=== PATIENT | female | born 1975 | race Caucasian/White ===

== ENCOUNTER 2019-09-22 12:52 | Outpatient (CLI) | payer MEDICAID | END 2019-09-22 12:53 | disposition short-term general hospital (02) | LOC: EMS 12:52 | PROVIDERS: ATTEND Surgery | DX: S09.90XA Unspecified injury of head, initial encounter (principal); S00.12XA Contusion of left eyelid and periocular area, initial encounter; S00.11XA Contusion of right eyelid and periocular area, initial encounter; S00.33XA Contusion of nose, initial encounter; R40.20 Unspecified coma; Y04.2XXA Assault by strike against or bumped into by another person, initial encounter; R40.2411 Glasgow coma scale score 13-15, in the field [EMT or ambulance]; Y92.9 Unspecified place or not applicable | CPT/HCPCS: A0425; A0429; A0999 ==

== ENCOUNTER 2019-09-22 13:04 | Emergency (ER) | payer MEDICAID ==
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
[2019-09-22 13:16] LABS: BASOPHILS # (AUTO) 0.1 10^3/uL (0.0-0.1); BASOPHILS % (AUTO) 0.8 %; EOSINOPHILS # (AUTO) 0.1 10^3/uL (0.0-0.7); EOSINOPHILS % (AUTO) 1.4 %; HGB - HEMOGLOBIN 13.4 g/dL (12.0-16.0); LYMPHOCYTES # (AUTO) 1.9 10^3/uL (1.5-3.5); LYMPHOCYTES % (AUTO) 19.6 %; MEAN CORPUSCULAR HEMOGLOBIN 33.2 pg (27.0-31.0); MEAN CORPUSCULAR HGB CONC 32.8 g/dL (32.0-36.0); MEAN CORPUSCULAR VOLUME 101.2 fL (81.0-99.0); MEAN PLATELET VOLUME 9.1 fL (7.9-10.8); MONOCYTES # (AUTO) 0.9 10^3/uL (0.0-1.0); MONOCYTES % (AUTO) 9.4 %; NEUTROPHILS # (AUTO) 6.6 10^3/uL (1.5-6.6); NEUTROPHILS % (AUTO) 68.3 %; PLT - PLATELET COUNT 321 10^3/uL (130-450); RED BLOOD COUNT 4.04 10^6/uL (4.20-5.40); RED CELL DISTRIBUTION WIDTH 17.1 % (12.0-15.0); WHITE BLOOD COUNT 9.7 x10^3/uL (4.8-10.8)
[2019-09-22 13:32] LABS: ALBUMIN/GLOBULIN RATIO 1.2 (1.0-2.2); BILIRUBIN,TOTAL 0.4 mg/dL (0.2-1.0); CALCIUM 8.8 mg/dL (8.5-10.3); CREATININE 0.4 mg/dL (0.4-1.0); TOTAL PROTEIN 7.4 g/dL (6.7-8.2)
[2019-09-22 13:43] LABS: HCG,QUALITATIVE BLOOD NEGATIVE
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
[2019-09-22 19:26] VITALS: BP 105/67
== END 2019-09-22 19:50 | disposition home or self-care (01) ==
LOC: ED 13:04
DX: S00.31XA Abrasion of nose, initial encounter (principal); S00.12XA Contusion of left eyelid and periocular area, initial encounter; S00.11XA Contusion of right eyelid and periocular area, initial encounter; S09.90XA Unspecified injury of head, initial encounter; W19.XXXA Unspecified fall, initial encounter; F10.121 Alcohol abuse with intoxication delirium
CPT/HCPCS: 36415; 70450; 70486; 72125; 80053; 80320; 83690; 84703; 85025; 99281; 99284

== ENCOUNTER 2019-09-30 09:53 | Emergency (ER) | payer MEDICAID ==
[2019-09-30 10:52] LABS: MUDS CUTOFF CONCENTRATIONS CUTOFF CONC BELOW:
[2019-09-30 10:54] LABS: BASOPHILS # (AUTO) 0.1 10^3/uL (0.0-0.1); BASOPHILS % (AUTO) 0.9 %; EOSINOPHILS # (AUTO) 0.1 10^3/uL (0.0-0.7); EOSINOPHILS % (AUTO) 2.2 %; LYMPHOCYTES # (AUTO) 1.2 10^3/uL (1.5-3.5); LYMPHOCYTES % (AUTO) 19.1 %; MEAN CORPUSCULAR HEMOGLOBIN 33.8 pg (27.0-31.0); MEAN CORPUSCULAR HGB CONC 33.6 g/dL (32.0-36.0); MEAN CORPUSCULAR VOLUME 100.5 fL (81.0-99.0); MEAN PLATELET VOLUME 9.5 fL (7.9-10.8); MONOCYTES # (AUTO) 0.7 10^3/uL (0.0-1.0); MONOCYTES % (AUTO) 10.5 %; NEUTROPHILS # (AUTO) 4.3 10^3/uL (1.5-6.6); NEUTROPHILS % (AUTO) 66.8 %; PLT - PLATELET COUNT 270 10^3/uL (130-450); RED BLOOD COUNT 3.85 10^6/uL (4.20-5.40); RED CELL DISTRIBUTION WIDTH 16.5 % (12.0-15.0); WHITE BLOOD COUNT 6.4 x10^3/uL (4.8-10.8)
[2019-09-30 10:57] LABS: BILIRUBIN,URINE NEGATIVE (NEGATIVE); GLUCOSE, URINE (UA) NEGATIVE (NEGATIVE); KETONES,URINE (UA) NEGATIVE (NEGATIVE); LEUKOCYTE ESTERASE, URINE NEGATIVE (NEGATIVE); NITRITE,URINE NEGATIVE (NEGATIVE); OCCULT BLOOD,URINE NEGATIVE (NEGATIVE); PROTEIN,URINE NEGATIVE (NEGATIVE); UROBILINOGEN,URINE 0.2 (NORMAL) E.U./dL (NORMAL)
[2019-09-30 10:58] LABS: CLARITY,URINE CLEAR (CLEAR); HCG UR QUAL NEGATIVE
[2019-09-30 11:07] LABS: AMPHETAMINE SCREEN,URINE NEGATIVE (NEGATIVE); BENZODIAZEPINES SCREEN, URINE NEGATIVE (NEGATIVE); COCAINE SCREEN URINE NEGATIVE (NEGATIVE); METHADONE SCREEN, URINE NEGATIVE (NEGATIVE); METHAMPHETAMINES SCREEN, URINE NEGATIVE (NEGATIVE); OPIATE SCREEN, URINE NEGATIVE (NEGATIVE); OXYCODONE SCREEN, URINE NEGATIVE (NEGATIVE); PROPOXYPHENE SCREEN, URINE NEGATIVE (NEGATIVE); TRICYCLIC ANTIDEPRESSANT,URINE NEGATIVE (NEGATIVE)
[2019-09-30 11:10] LABS: ACETAMINOPHEN < 10 ug/mL (10-30); ALBUMIN 4.4 g/dL (3.2-5.5); ALBUMIN/GLOBULIN RATIO 1.2 (1.0-2.2); ALKALINE PHOSPHATASE 51 IU/L (42-121); ALT ALANINE AMINOTRANSFERASE 42 IU/L (10-60); AST ASPARTATE AMINOTRANSFERASE 50 IU/L (10-42); BILIRUBIN,TOTAL 0.6 mg/dL (0.2-1.0); BUN - BLOOD UREA NITROGEN 9 mg/dL (6-20); CALCIUM 9.6 mg/dL (8.5-10.3); CARBON DIOXIDE - CO2 26 mmol/L (21-32); CHLORIDE 103 mmol/L (101-111); CREATININE 0.4 mg/dL (0.4-1.0); GFR - MDRD 175 (>89); GLUCOSE 75 mg/dL (70-100); LIPASE 44 U/L (22-51); SALICYLATE < 6.0 mg/dL; SODIUM 142 mmol/L (135-145)
[2019-09-30] MEDS ORDERED: FOLIC ACID INJ 1 MG, THIAMINE INJ 100 MG, MAGNESIUM SULFATE 2 GM, MULTIVITAMIN 10 ML in... IV STA ×5 (11:15)
[2019-09-30] MEDS ORDERED: DEXAMETHASONE 10 MG/ML VIAL IVP STA (11:15)
[2019-09-30] MEDS ORDERED: LORazepam 2 MG/ML VIAL IVP STA ×3 (11:15→15:45)
[2019-09-30] MEDS ORDERED: ONDANSETRON 4 MG/2 ML VIAL IVP STA (11:16)
--- NOTE | 2019-09-30 11:19 | ED Physician Documentation ---
History of Present Illness - Stated complaint Stated Complaint: ETOH WITHDRAWLS - Chief complaint Chief Complaint: MHE - History obtained from History obtained from: Patient, Family - History of Present Illness Timing: How many weeks ago (6) - Additonal information Additional information: 44-year-old female with a history of alcohol dependence has been drinking for the past 6 weeks straight and she has come to the emergency department today seeking help for alcohol withdrawal and treatment. She has been in treatment once previously back in 2010 when she went to [facility] and at that time she had 2 years of sobriety followed by a week of drinking and another year of sobriety. She states that her drinking pattern currently is about 1/5 of vodka per day as well as beer and she is drinking as early in the morning as she can get out of the skilled nursing and she is sleeping at the haven not able to drink after 7 PM. She begins to go through withdrawal at about 1 AM. She is complaining of sweats nausea vomiting abdominal pain the shakes. She has had DTs previously and she has once had withdrawal seizure. Review of Systems Constitutional: denies: Fever Eyes: denies: Decreased vision Ears: denies: Ear pain Nose: denies: Congestion Throat: denies: Sore throat Cardiac: denies: Chest pain / pressure, Palpitations Respiratory: denies: Dyspnea, Cough GI: reports: Abdominal Pain, Nausea, Vomiting : denies: Dysuria, Frequency Skin: denies: Rash Musculoskeletal: denies: Neck pain Neurologic: denies: Generalized weakness, Focal weakness, Numbness PD PAST MEDICAL HISTORY - Past Surgical History Past Surgical History: No - Present Medications Home Medications: Ambulatory Orders Medication Instructions Recorded Confirmed Lorazepam [Ativan] 1 - 2 mg PO Q4HR PRN #30 tablet 09/30/19 - Allergies Allergies/Adverse Reactions: Allergies Allergy/AdvReac Type Severity Reaction Status Date / Time Unable to Assess Allergy Verified 09/30/19 10:06 - Social History Does the pt smoke?: No Smoking Status: Never smoker Does the pt drink ETOH?: Yes Does the pt have substance abuse?: No - Immunizations Immunizations are current?: Yes - POLST Patient has POLST: No PD ED PE NORMAL - Vitals Vital signs reviewed: Yes (hypertensive mild) - General General: Alert and oriented X 3, No acute distress, Well developed/nourished - HEENT HEENT: Atraumatic, PERRL, EOMI, Ears normal, Moist mucous membranes, Pharynx benign, Dentition benign - Neck Neck: Supple, no meningeal sign, No bony TTP - Cardiac Cardiac: RRR, No murmur - Respiratory Respiratory: No respiratory distress, Clear bilaterally - Abdomen Abdomen: Normal bowel sounds, Soft, Non distended, No organomegaly, Other (minimal epigastric tenderness) - Back Back: No CVA TTP, No spinal TTP - Derm Derm: Normal color, Warm and dry, No rash - Extremities Extremities: No deformity, No edema - Neuro Neuro: Alert and oriented X 3, 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, No motor deficit, No sensory deficit, Normal speech Eye Opening: Spontaneous Motor: Obeys Commands Verbal: Oriented GCS Score: 15 - Psych Psych: Normal mood, Normal affect Results - Vitals Vitals: Vital Signs - 24 hr 09/30/19 09/30/19 09/30/19 10:03 12:03 14:39 Temperature 36.5 C Heart Rate 87 80 82 Respiratory 16 16 15 Rate Blood Pressure 131/75 H 125/72 125/72 O2 Saturation 100 97 96 Oxygen O2 Source Room air - Labs Labs: Laboratory Tests 09/30/19 09/30/19 09/30/19 10:48 10:48 10:48 WBC 6.4 RBC 3.85 L Hgb 13.0 Hct 38.7 MCV 100.5 H MCH 33.8 H MCHC 33.6 RDW 16.5 H Plt Count 270 MPV 9.5 Neut # (Auto) 4.3 Lymph # (Auto) 1.2 L [place] # (Auto) 0.7 Eos # (Auto) 0.1 Baso # (Auto) 0.1 Absolute Nucleated RBC 0.00 Nucleated RBC % 0.0 Sodium 142 Potassium 4.1 Chloride 103 Carbon Dioxide 26 Anion Gap 13.0 BUN 9 Creatinine 0.4 Estimated GFR (MDRD) 175 Glucose 75 Calcium 9.6 Total Bilirubin 0.6 AST 50 H ALT 42 Alkaline Phosphatase 51 Total Protein 8.0 Albumin 4.4 Globulin 3.6 Albumin/Globulin Ratio 1.2 Lipase 44 TSH 2.18 Urine Color Urine Clarity Urine pH Ur Specific [place] Urine Protein Urine Glucose (UA) Urine Ketones Urine Occult Blood Urine Nitrite Urine Bilirubin Urine Urobilinogen Ur Leukocyte Esterase Ur Microscopic Review Urine Culture Comments Urine HCG, Qual Salicylates < 6.0 Urine Opiates Screen Ur Oxycodone Screen Urine Methadone Screen Ur Propoxyphene Screen Acetaminophen < 10 L Ur Barbiturates Screen Ur Tricyclics Screen Ur Phencyclidine Scrn Ur Amphetamine Screen U Methamphetamines Scrn U Benzodiazepines Scrn Urine Cocaine Screen U Cannabinoids Screen Ethyl Alcohol 183.6 09/30/19 09/30/19 10:48 10:48 WBC RBC Hgb Hct MCV MCH MCHC RDW Plt Count MPV Neut # (Auto) Lymph # (Auto) [place] # (Auto) Eos # (Auto) Baso # (Auto) Absolute Nucleated RBC Nucleated RBC % Sodium Potassium Chloride Carbon Dioxide Anion Gap BUN Creatinine Estimated GFR (MDRD) Glucose Calcium Total Bilirubin AST ALT Alkaline Phosphatase Total Protein Albumin Globulin Albumin/Globulin Ratio Lipase TSH Urine Color YELLOW Urine Clarity CLEAR Urine pH 6.0 Ur Specific [place] <=1.005 Urine Protein NEGATIVE Urine Glucose (UA) NEGATIVE Urine Ketones NEGATIVE Urine Occult Blood NEGATIVE Urine Nitrite NEGATIVE Urine Bilirubin NEGATIVE Urine Urobilinogen 0.2 (NORMAL) Ur Leukocyte Esterase NEGATIVE Ur Microscopic Review NOT INDICATED Urine Culture Comments NOT INDICATED Urine HCG, Qual NEGATIVE Salicylates Urine Opiates Screen NEGATIVE Ur Oxycodone Screen NEGATIVE Urine Methadone Screen NEGATIVE Ur Propoxyphene Screen NEGATIVE Acetaminophen Ur Barbiturates Screen NEGATIVE Ur Tricyclics Screen NEGATIVE Ur Phencyclidine Scrn NEGATIVE Ur Amphetamine Screen NEGATIVE U Methamphetamines Scrn NEGATIVE U Benzodiazepines Scrn NEGATIVE Urine Cocaine Screen NEGATIVE U Cannabinoids Screen NEGATIVE Ethyl Alcohol PD MEDICAL DECISION MAKING - ED course Complexity details: reviewed old records, reviewed results, re-evaluated patient, considered differential, d/w patient, d/w family ED course: 42-year-old female with a history of alcohol dependence he is here this morning requesting assistance with detox and treatment. She has been drinking about 1/5/day and has prior experience with withdrawal. This morning her blood alcohol is 185 and she is administered a banana bag IV and 1 mg of Ativan. She eventually makes arrangements with [facility] for detox before [facility] for treatment. She is administered a second 1mg of ativan in the ED but continues to have increasing shakes and she is administered a 3rd mg. Departure - Departure Disposition: 01 Home, Self Care Clinical Impression: Alcohol withdrawal syndrome Qualifiers: Complication of substance-induced condition: with perceptual disturbance Qualified Code(s): F10.232 - Alcohol dependence with withdrawal with perceptual disturbance Condition: Stable Instructions: ED Withdrawal Alcohol Follow-Up: [facility] [Provider Group] Prescriptions: Lorazepam [Ativan] 1 - 2 mg PO Q4HR PRN #30 tablet PRN Reason: withdrawal symptoms
[2019-09-30 18:55] VITALS: BP 132/80
== END 2019-09-30 19:19 | disposition home or self-care (01) ==
LOC: ED 09:53
DX: F10.232 Alcohol dependence with withdrawal with perceptual disturbance (principal); Y90.6 Blood alcohol level of 120-199 mg/100 ml
CPT/HCPCS: 36415; 80053; 80306; 80307; 80320; 80329; 81003; 81025; 83690; 84443; 85025; 96365; 96366; 96375; 96376; 99284; J2060; J3411; 81001; 87086

== ENCOUNTER 2019-10-05 10:00 | Emergency (ER) | payer MEDICAID ==
[2019-10-05] MEDS ORDERED: LORazepam 1 MG TABLET PO STA (11:49)
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
[2019-10-05 11:55] VITALS: BP 113/74
== END 2019-10-05 11:56 | disposition home or self-care (01) ==
LOC: ED 10:00
DX: F10.230 Alcohol dependence with withdrawal, uncomplicated (principal); Z76.0 Encounter for issue of repeat prescription
CPT/HCPCS: 99282; 99283; J8499

== ENCOUNTER 2019-12-10 18:21 | Emergency (ER) | payer MEDICAID ==
[2019-12-10 18:33] VITALS: BP 102/59
--- NOTE | 2019-12-10 19:16 | ED Physician Documentation ---
History of Present Illness - Stated complaint Stated Complaint: COUGH - Chief complaint Chief Complaint: Resp - History obtained from History obtained from: Patient - Additonal information Additional information: Patient comes emergency department complaining of cough productive of green phlegm for about the last week. Patient states she started with a sore throat and quickly developed nasal congestion and sinus pain/congestion. She does not think she has been running fevers. Patient states she is not necessarily short of breath, but that when she breathes in it makes her start coughing. She states that she does not have a history of asthma or COPD. She is not a smoker on a regular basis, but does live with smokers, and states that she will take a puff off of her friends cigarettes occasionally. Patient is otherwise healthy. She states that she has not been able to work out recently because she feels rundown. Patient denies any abdominal pain, nausea, or vomiting. No other complaints at this time.No known sick contacts Review of Systems Ten Systems: 10 systems reviewed and negative Constitutional: reports: Reviewed and negative Eyes: reports: Reviewed and negative Ears: reports: Reviewed and negative Nose: reports: Rhinorrhea / runny nose, Congestion Throat: reports: Sore throat Cardiac: reports: Reviewed and negative Respiratory: reports: Cough GI: reports: Reviewed and negative : reports: Reviewed and negative Skin: reports: Reviewed and negative Musculoskeletal: reports: Reviewed and negative Neurologic: reports: Reviewed and negative Psychiatric: reports: Reviewed and negative Endocrine: reports: Reviewed and negative Immunocompromised: reports: Reviewed and negative PD PAST MEDICAL HISTORY - Past Surgical History Past Surgical History: No - Present Medications Home Medications: Ambulatory Orders Medication Instructions Recorded Confirmed Lorazepam [Ativan] 1 - 2 mg PO Q4HR PRN #30 tablet 09/30/19 Lorazepam [Ativan] 1 mg PO TID PRN #11 tablet 10/05/19 Azithromycin [Zithromax] 0 mg PO DAILY #6 tablet 12/10/19 - Allergies Allergies/Adverse Reactions: Allergies Allergy/AdvReac Type Severity Reaction Status Date / Time No Known Drug Allergies Allergy Verified 12/10/19 18:32 - Social History Does the pt smoke?: No Smoking Status: Never smoker Does the pt drink ETOH?: Yes Does the pt have substance abuse?: No - Immunizations Immunizations are current?: Yes - POLST Patient has POLST: No PD ED PE NORMAL - Vitals Vital signs reviewed: Yes - General General: Alert and oriented X 3, No acute distress - HEENT HEENT: Atraumatic, PERRL, EOMI, Pharynx benign - Neck Neck: Supple, no meningeal sign - Cardiac Cardiac: RRR, No murmur - Respiratory Respiratory: No respiratory distress, Clear bilaterally - Abdomen Abdomen: Soft, Non tender, Non distended - Derm Derm: Normal color, Warm and dry, No rash - Extremities Extremities: No deformity, No tenderness to palpate, No edema, No calf tenderness / cord - Neuro Neuro: Alert and oriented X 3, 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, No motor deficit, No sensory deficit, Normal speech - Psych Psych: Normal mood, Normal affect Results - Vitals Vitals: Vital Signs - 24 hr 12/10/19 18:32 Temperature 37 C Heart Rate 91 Respiratory 17 Rate Blood Pressure 102/59 L O2 Saturation 97 Oxygen O2 Source Room air - Rads (name of study) Chest x-ray Radiology: Final report received, EMP read indepedently (No acute pathology) PD MEDICAL DECISION MAKING - ED course Complexity details: reviewed old records, reviewed results, re-evaluated patient, considered differential, d/w patient ED course: Patient was worked up with chest x-ray, Which was negative. Influenza testing had been discussed with the patient and ordered, but patient ultimately refused the test when nursing staff went to perform it. I discussed with the patient that at this point in time, given her secondhand smoke exposure, occasional smoking herself, and the extended period of cough with productive, green phlegm, she is possibly developing an early bacterial bronchitis. However, I do not feel that she needs antibiotics at this time. I will give her prescription for this which she is to fill only if the symptoms continue for more than the next few days. She is advised to follow-up with her primary care physician for further concerns. We have discussed the usual indications for return. Departure - Departure Disposition: 01 Home, Self Care Clinical Impression: Upper respiratory tract infection Condition: Good Instructions: ED Viral Syndrome, ED Upper Resp Infec Abx Tx Prescriptions: Azithromycin [Zithromax] 0 mg PO DAILY #6 tablet Comments: At this point in time, you do not have a clear-cut bacterial infection. You may have an early developing bronchitis, which could be viral or bacterial at this point. You may take on the prescription for the antibiotics and if in 3 days, your cough is not improved, you may get this filled and take it. However, It is probably not indicated at this point in time. We were not able to test you for influenza today, because she declined the test. If you do have influenza, it is not uncommon for this viral illness to last for up to 2 weeks with significant symptoms. Please follow-up with your primary care physician for any further concerns.
--- NOTE | 2019-12-10 19:24 | XRAY Report ---
Reason: cough Procedure Date: 12/10/2019 Accession Number: [id number] / [id number] Procedure: XR - Chest 2 View X-Ray CPT Code: 40318 Final Report FULL RESULT: EXAM: CHEST RADIOGRAPHY EXAM DATE: 12/10/2019 07:04 PM. CLINICAL HISTORY: Cough. COMPARISON: None. TECHNIQUE: 2 views. FINDINGS: LUNGS: The lungs are clear. PLEURA: No significant pleural effusion. No clinically significant pneumothorax. MEDIASTINUM: The cardiomediastinal silhouette is unremarkable. BONES: Partially imaged ORIF of a left humeral fracture. OTHER: Status post left mastectomy. IMPRESSION: No acute cardiopulmonary abnormality. RADIA
== END 2019-12-10 20:17 | disposition home or self-care (01) ==
LOC: ED 18:21
DX: J06.9 Acute upper respiratory infection, unspecified (principal)
CPT/HCPCS: 71046; 99284

== ENCOUNTER 2020-09-30 16:17 | Emergency (ER) | payer MEDICAID ==
[2020-09-30] MEDS ORDERED: FOLIC ACID INJ 1 MG, THIAMINE INJ 100 MG, MAGNESIUM SULFATE 2 GM, MULTIVITAMIN 10 ML in... IV STA ×5 (17:44)
[2020-09-30] MEDS ORDERED: ONDANSETRON 4 MG/2 ML VIAL IVP STA (17:45)
--- NOTE | 2020-09-30 17:46 | ED Physician Documentation ---
PD HPI MHE - Stated complaint Stated Complaint: ANXIETY - Chief complaint Chief Complaint: MHE - History obtained from History obtained from: Patient - Additional information Additional information: 45-year-old woman presents by private vehicle, "dropped off" requesting medications to help with anxiety and alcohol withdrawal which is at odds with her examination since she is clearly intoxicated. In fact to such an extent that history is somewhat limited by intoxication. States she has been drinking for 5 days straight. Lives alone. No possibility of . Does not abuse any other substances. Review of Systems Unable to obtain: Intoxicated PD PAST MEDICAL HISTORY - Past Surgical History Past Surgical History: No - Present Medications Home Medications: Ambulatory Orders Medication Instructions Recorded Confirmed No Known Home Medications 09/30/20 09/30/20 - Allergies Allergies/Adverse Reactions: Allergies Allergy/AdvReac Type Severity Reaction Status Date / Time No Known Drug Allergies Allergy Verified 09/30/20 16:33 - Social History Does the pt smoke?: No Smoking Status: Never smoker Does the pt drink ETOH?: Yes Does the pt have substance abuse?: No - Immunizations Immunizations are current?: Yes - POLST Patient has POLST: No PD ED PE NORMAL - Vitals Vital signs reviewed: Yes - General General: Other (She is alert to verbal stimuli but generally somnolent and smells of alcohol) - HEENT HEENT: PERRL, EOMI (Significant nystagmus) - Neck Neck: Supple, no meningeal sign, No bony TTP - Cardiac Cardiac: RRR, No murmur - Respiratory Respiratory: No respiratory distress, Clear bilaterally - Abdomen Abdomen: Soft, Non tender - Back Back: No CVA TTP, No spinal TTP - Derm Derm: Normal color, Warm and dry - Extremities Extremities: No edema, No calf tenderness / cord - Neuro Neuro: Normal speech Eye Opening: To Voice Motor: Obeys Commands Verbal: Oriented GCS Score: 14 Results - Vitals Vitals: Vital Signs - 24 hr 09/30/20 09/30/20 16:30 19:15 Temperature 36.5 C 36.5 C Heart Rate 111 H 82 Respiratory 20 12 Rate Blood Pressure 118/81 H 113/69 O2 Saturation 95 95 Oxygen O2 Source Room air - Labs Labs: Laboratory Tests 09/30/20 09/30/20 09/30/20 17:50 17:50 17:50 WBC 8.6 RBC 4.93 Hgb 16.1 H Hct 47.8 H MCV 97.0 MCH 32.7 H MCHC 33.7 RDW 13.9 Plt Count 323 MPV 9.2 Neut # (Auto) 5.6 Lymph # (Auto) 1.8 Granite # (Auto) 0.7 Eos # (Auto) 0.4 Baso # (Auto) 0.1 Absolute Nucleated RBC 0.00 Nucleated RBC % 0.0 Sodium 141 Potassium 3.8 Chloride 101 Carbon Dioxide 26 Anion Gap 14.0 H BUN 13 Creatinine 0.5 Estimated GFR (MDRD) 135 Glucose 103 H Calcium 9.3 Total Bilirubin 0.4 AST 37 ALT 28 Alkaline Phosphatase 60 Total Protein 8.2 Albumin 4.6 Globulin 3.6 Albumin/Globulin Ratio 1.3 Lipase 24 TSH 0.95 Salicylates < 6.0 Acetaminophen < 10 L Ethyl Alcohol 366.6 PD MEDICAL DECISION MAKING - ED course ED course: Woman presents asking for anxiety medicine but is clearly intoxicated corroborated by a blood alcohol of 366. She was given a banana bag and some Zofran. Slept for a few hours, then woke up again still intoxicated and asking for anxiety medicines. These were declined for patient safety. Care signed out to overnight ED physician pending sobriety. If she prefers she can see social work in the morning. I would certainly be hesitant to give her a lot of anxiety medicine on discharge. Departure - Departure Clinical Impression: Alcohol intoxication Qualifiers: Complication of substance-induced condition: with delirium Qualified Code(s): F10.921 - Alcohol use, unspecified with intoxication delirium Condition: Stable Instructions: ED Alcohol Intoxication
[2020-09-30 18:03] LABS: BASOPHILS # (AUTO) 0.1 10^3/uL (0.0-0.1); BASOPHILS % (AUTO) 0.8 %; EOSINOPHILS # (AUTO) 0.4 10^3/uL (0.0-0.7); EOSINOPHILS % (AUTO) 4.2 %; HGB - HEMOGLOBIN 16.1 g/dL (12.0-16.0); LYMPHOCYTES # (AUTO) 1.8 10^3/uL (1.5-3.5); LYMPHOCYTES % (AUTO) 21.4 %; MEAN CORPUSCULAR HEMOGLOBIN 32.7 pg (27.0-31.0); MEAN CORPUSCULAR HGB CONC 33.7 g/dL (32.0-36.0); MEAN PLATELET VOLUME 9.2 fL (7.9-10.8); MONOCYTES # (AUTO) 0.7 10^3/uL (0.0-1.0); NEUTROPHILS # (AUTO) 5.6 10^3/uL (1.5-6.6); NEUTROPHILS % (AUTO) 65.4 %; PLT - PLATELET COUNT 323 10^3/uL (130-450); RED BLOOD COUNT 4.93 10^6/uL (4.20-5.40); RED CELL DISTRIBUTION WIDTH 13.9 % (12.0-15.0); WHITE BLOOD COUNT 8.6 x10^3/uL (4.8-10.8)
[2020-09-30 18:19] LABS: ACETAMINOPHEN < 10 ug/mL (10-30); ALBUMIN 4.6 g/dL (3.2-5.5); ALBUMIN/GLOBULIN RATIO 1.3 (1.0-2.2); ALKALINE PHOSPHATASE 60 IU/L (42-121); ALT ALANINE AMINOTRANSFERASE 28 IU/L (10-60); AST ASPARTATE AMINOTRANSFERASE 37 IU/L (10-42); BILIRUBIN,TOTAL 0.4 mg/dL (0.2-1.0); BUN - BLOOD UREA NITROGEN 13 mg/dL (6-20); CALCIUM 9.3 mg/dL (8.5-10.3); CARBON DIOXIDE - CO2 26 mmol/L (21-32); CHLORIDE 101 mmol/L (101-111); CREATININE 0.5 mg/dL (0.4-1.0); GLUCOSE 103 mg/dL (70-100); LIPASE 24 U/L (22-51); SALICYLATE < 6.0 mg/dL; SODIUM 141 mmol/L (135-145); TOTAL PROTEIN 8.2 g/dL (6.7-8.2)
[2020-09-30 22:10] LABS: MUDS CUTOFF CONCENTRATIONS CUTOFF CONC BELOW:
[2020-09-30 22:13] LABS: BILIRUBIN,URINE NEGATIVE (NEGATIVE); GLUCOSE, URINE (UA) NEGATIVE (NEGATIVE); KETONES,URINE (UA) TRACE mg/dL (NEGATIVE); LEUKOCYTE ESTERASE, URINE NEGATIVE (NEGATIVE); NITRITE,URINE NEGATIVE (NEGATIVE); OCCULT BLOOD,URINE TRACE-LYSE (NEGATIVE); PROTEIN,URINE NEGATIVE (NEGATIVE); UROBILINOGEN,URINE 0.2 (NORMAL) E.U./dL (NORMAL)
[2020-09-30 22:16] LABS: CLARITY,URINE CLEAR (CLEAR); HCG UR QUAL NEGATIVE
[2020-09-30] MEDS ORDERED: hydrOXYzine PAMOATE 25 MG CAPSULE PO STA (22:20)
[2020-09-30 22:24] LABS: AMPHETAMINE SCREEN,URINE NEGATIVE (NEGATIVE); BENZODIAZEPINES SCREEN, URINE NEGATIVE (NEGATIVE); COCAINE SCREEN URINE NEGATIVE (NEGATIVE); METHADONE SCREEN, URINE NEGATIVE (NEGATIVE); METHAMPHETAMINES SCREEN, URINE NEGATIVE (NEGATIVE); OPIATE SCREEN, URINE NEGATIVE (NEGATIVE); OXYCODONE SCREEN, URINE NEGATIVE (NEGATIVE); PROPOXYPHENE SCREEN, URINE NEGATIVE (NEGATIVE); TRICYCLIC ANTIDEPRESSANT,URINE NEGATIVE (NEGATIVE)
--- NOTE | 2020-09-30 22:27 | ED Physician Documentation ---
ED Addendum - Addendum Addendum: 09/30/20 22:23 Patient endorsed to me by Dr. Dumont. On my history, the patient appears clinically sober. She is requesting Ativan, stating that she is withdrawing and undergoing a severe anxiety attack but does appear comfortable at this time. Patient denies SI/HI/AVH, denies injury or pain anywhere, and states that she feels safe at home. She last had a withdrawal seizure about a year ago and had had inpatient detox around the same time. She states that she drinks every day and occasionally uses cigarettes. Denies other substance use. Patient works as a massage therapist. She is declining further history at this time 2/2 anxiety. On exam, VSWNL, head atraumatic, patient mildly disheveled but well appearing. no nystagmus, no tremors. Normal gross neurologic exam. psych- normal affect, linear thought process. mood stated as anxious. Will treat anxiety with atarax and reassess. 09/30/20 23:28 Patient states she is tired and would like to go home. clinically sober, medically cleared at this time. requesting detox information. will provide [facility] detox and a few librium pills to prevent withdrawal.
[2020-09-30 23:59] VITALS: BP 108/84
== END 2020-09-30 23:58 | disposition home or self-care (01) ==
LOC: ED 16:17
DX: F10.129 Alcohol abuse with intoxication, unspecified (principal)
CPT/HCPCS: 36415; 80053; 80306; 80307; 80320; 80329; 81003; 81025; 83690; 84443; 85025; 96365; 96366; 96375; 99281; 99284; A9270; J3411; 81001; 87086

== ENCOUNTER 2021-11-18 02:27 | Outpatient (CLI) | payer MEDICAID | END 2021-11-18 02:28 | disposition critical access hospital (66) | LOC: EMS 02:27 | DX: K92.0 Hematemesis (principal); R07.0 Pain in throat; R07.9 Chest pain, unspecified; R10.9 Unspecified abdominal pain; Z72.89 Other problems related to lifestyle | CPT/HCPCS: A0425; A0429; A0999 ==

== ENCOUNTER 2021-11-18 02:49 | Emergency (ER) | payer MEDICAID ==
[2021-11-18] MEDS ORDERED: SODIUM CHLORIDE 0.9% 1,000 ML IV STA (03:01)
[2021-11-18] MEDS ORDERED: ONDANSETRON 4 MG/2 ML VIAL IVP STA (03:01)
[2021-11-18] MEDS ORDERED: MAG HYDROX/AL HYDROX/SIMETH 30 ML UDC PO STA (03:32)
[2021-11-18] MEDS ORDERED: LIDOCAINE VISCOUS 2% 15 ML UDC MM STA (03:32)
[2021-11-18] MEDS ORDERED: diphenhydrAMINE ELIXIR 25 MG/10 ML UDC PO STA (03:32)
[2021-11-18] MEDS ORDERED: FAMOTIDINE 20 MG/2 ML VIAL IVP STA (03:32)
--- NOTE | 2021-11-18 03:35 | ED Physician Documentation ---
History of Present Illness - Stated complaint Stated Complaint: VOMITING BLOOD - Chief complaint Chief Complaint: General - History obtained from History obtained from: Patient - Additonal information Additional information: 46yF with pmh alcohol abuse p/w sore throat X about a month with hematemesis /spitting up blood starting today. patient has had two large volume episodes. denies nausea at present. denies fever, cough, leg swelling, soa. she does have some upper chest tightness radiating up the throat. Review of Systems Ten Systems: 10 systems reviewed and negative Constitutional: denies: Fever, Chills Cardiac: denies: Chest pain / pressure Respiratory: denies: Dyspnea, Cough GI: reports: Vomiting. denies: Abdominal Pain, Nausea, Bloody / black stool PD PAST MEDICAL HISTORY - Past Surgical History Past Surgical History: No - Present Medications Home Medications: Ambulatory Orders Medication Instructions Recorded Confirmed chlordiazePOXIDE [Librium] 50 mg PO Q6H PRN 1 Days #4 capsule 09/30/20 hydrOXYzine HCL [Hydroxyzine HCl] 25 mg PO Q6HR PRN 2 Days #8 tablet 09/30/20 Pantoprazole [Protonix] 40 mg PO QDAC #30 tablet 11/18/21 - Allergies Allergies/Adverse Reactions: Allergies Allergy/AdvReac Type Severity Reaction Status Date / Time No Known Drug Allergies Allergy Verified 11/18/21 03:04 - Social History Does the pt smoke?: No Smoking Status: Never smoker Does the pt drink ETOH?: Yes Does the pt have substance abuse?: No - Immunizations Immunizations are current?: Yes - POLST Patient has POLST: No PD ED PE NORMAL - Vitals Vital signs reviewed: Yes - General General: Alert and oriented X 3, No acute distress, Well developed/nourished - HEENT HEENT: Atraumatic, PERRL, EOMI - Neck Neck: Supple, no meningeal sign - Cardiac Cardiac: Other (tachycardic rate, regular rhythm) - Respiratory Respiratory: No respiratory distress, Clear bilaterally - Abdomen Abdomen: Non tender, Non distended - Back Back: No CVA TTP - Derm Derm: Normal color, Warm and dry - Extremities Extremities: No deformity - Neuro Neuro: Alert and oriented X 3, No motor deficit, No sensory deficit - Psych Psych: Normal mood, Normal affect Results - Vitals Vitals: Vital Signs - 24 hr 11/18/21 11/18/21 02:55 03:34 Temperature 36.9 C Heart Rate 107 H 101 H Respiratory 17 13 Rate Blood Pressure 125/91 H 120/76 O2 Saturation 100 100 Oxygen O2 Source Room air - Labs Labs: Laboratory Tests 11/18/21 11/18/21 03:11 03:11 WBC 5.4 RBC 3.41 L Hgb 11.8 L Hct 33.2 L MCV 97.4 MCH 34.6 H MCHC 35.5 RDW 15.4 H Plt Count 157 MPV 10.5 Neut # (Auto) 3.8 Lymph # (Auto) 1.0 L Bell # (Auto) 0.4 Eos # (Auto) 0.1 Baso # (Auto) 0.1 Absolute Nucleated RBC 0.00 Nucleated RBC % 0.0 Sodium 138 Potassium 3.3 L Chloride 99 L Carbon Dioxide 24 Anion Gap 15.0 H BUN 11 Creatinine 0.4 Estimated GFR (MDRD) 173 Glucose 99 Calcium 8.8 Total Bilirubin 0.8 AST 102 H ALT 99 H Alkaline Phosphatase 55 Total Protein 7.5 Albumin 4.1 Globulin 3.4 Albumin/Globulin Ratio 1.2 Lipase 28 PD MEDICAL DECISION MAKING - ED course ED course: 46yF with pmh chronic alcohol abuse p/w sore throat, bloody vomitus and spit. Will obtain labs to eval further but patient is well appearing, does not appear pale/anemic. will treat symptomatically. Patient mildly anemic but asymptomatic. spitting frothy sputum with pink streaks into emesis bag, but no further large volumee emesis. Advised close follow up with GI. strict return precautions given. Departure - Departure Disposition: 01 Home, Self Care Clinical Impression: Hematemesis of fresh blood, Alcohol abuse, Anemia Condition: Stable Instructions: ED Bleed UGI Stable Follow-Up: Eldon aLw MD [Physician No Access] - Prescriptions: Pantoprazole [Protonix] 40 mg PO QDAC #30 tablet Comments: You were seen in the emergency department for evaluation of upper GI bleeding, likely coming from the stomach. You should follow up with GI (gastroenterology - a specialist of the intestines, esophagus and stomach) for endoscopy and return to the emergency department if you have worsening bloody vomit or develop dizziness, severe weakness, or any other new or worsening symptoms of concern to you. You do have some anemia compared to old labs, but it isn't in a dangerous range right now.
[2021-11-18 03:40] LABS: BASOPHILS # (AUTO) 0.1 10^3/uL (0.0-0.1); BASOPHILS % (AUTO) 0.9 %; EOSINOPHILS # (AUTO) 0.1 10^3/uL (0.0-0.7); EOSINOPHILS % (AUTO) 2.2 %; HCT - HEMATOCRIT 33.2 % (37.0-47.0); HGB - HEMOGLOBIN 11.8 g/dL (12.0-16.0); LYMPHOCYTES % (AUTO) 17.6 %; MEAN CORPUSCULAR HEMOGLOBIN 34.6 pg (27.0-31.0); MEAN CORPUSCULAR HGB CONC 35.5 g/dL (32.0-36.0); MEAN CORPUSCULAR VOLUME 97.4 fL (81.0-99.0); MEAN PLATELET VOLUME 10.5 fL (7.9-10.8); MONOCYTES # (AUTO) 0.4 10^3/uL (0.0-1.0); MONOCYTES % (AUTO) 7.8 %; NEUTROPHILS # (AUTO) 3.8 10^3/uL (1.5-6.6); NEUTROPHILS % (AUTO) 70.9 %; PLT - PLATELET COUNT 157 10^3/uL (130-450); RED BLOOD COUNT 3.41 10^6/uL (4.20-5.40); RED CELL DISTRIBUTION WIDTH 15.4 % (12.0-15.0); WHITE BLOOD COUNT 5.4 x10^3/uL (4.8-10.8)
[2021-11-18 03:53] LABS: ALBUMIN 4.1 g/dL (3.2-5.5); ALBUMIN/GLOBULIN RATIO 1.2 (1.0-2.2); BILIRUBIN,TOTAL 0.8 mg/dL (0.2-1.0); CALCIUM 8.8 mg/dL (8.5-10.3); CREATININE 0.4 mg/dL (0.4-1.0); POTASSIUM 3.3 mmol/L (3.5-5.0); TOTAL PROTEIN 7.5 g/dL (6.7-8.2)
[2021-11-18] MEDS ORDERED: PANTOPRAZOLE 40 MG VIAL IVP STA (04:10)
[2021-11-18 04:31] VITALS: BP 115/70
== END 2021-11-18 04:42 | disposition home or self-care (01) ==
LOC: EDUNIT# → ED 02:49
DX: F10.10 Alcohol abuse, uncomplicated (principal); K92.0 Hematemesis; D64.9 Anemia, unspecified
CPT/HCPCS: 36415; 80053; 83690; 85025; 96374; 96375; 99283; A9270